=== PATIENT | male | born 1940 | race Caucasian/White ===

== ENCOUNTER 2018-04-12 09:44 | Day surgery (SDC) | payer MEDICARE, MEDICAID ==
[~2018-04-12] VITALS: Ht 188 cm; Wt 78.2 kg
--- NOTE | ~2018-04-12 | OP ---
PATIENT NAME: HAILE MARIN MEDICAL RECORD: [id number] :38 LOCATION:D.OPS ADMISSION DATE: SURGEON: HAILE TERRY MD DATE OF OPERATION: 04/12/2018 PREOPERATIVE DIAGNOSES: 1. Dysphagia. 2. Feeding problems. 3. Acute malnutrition. 4. Lewy body dementia. POSTOPERATIVE DIAGNOSES: 1. Dysphagia. 2. Feeding problems. 3. Acute malnutrition. 4. Lewy body dementia. 5. 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 PROCEDURES: 1. Esophagogastroscopy with antral biopsies. 2. Placement of 28-Armenian percutaneous endoscopic gastrostomy tube. SURGEON: Haile Terry MD MEDICAL BILLING COORDINATOR: None. BLOOD LOSS: Minimal. ANESTHESIA: Local with IV sedation. COMPLICATIONS: None. The risks, possible complications, and alternatives to the procedure were explained. A consent form was signed. The reason for the anesthesia staff being present during the procedure includes the possible need for airway manipulation during the procedure, which was necessary. ENDOSCOPIC COURSE: The patient was conveyed to the endoscopy suite electively on 04/12/2018. IV sedation was induced by the anesthesia staff. A bite-block was inserted. A gastroscope was inserted into the mouth. It was advanced easily into the hypopharynx. The esophagus was easily intubated as was the stomach and the antral biopsies were obtained. I could not intubate the duodenum even though the scope was "hugged out." I cleansed the anterior abdominal wall skin. I indented the anterior abdominal wall skin. I visualized this endoscopically. A small skin ryan was accomplished in the epigastrium. Through the skin ryan, I advanced the Angiocath. I punctured the antrum of the stomach on the first try. A guidewire was advanced. This was grasped with an endoscopic snare and was withdrawn out through the mouth. The wire was attached to a pull-type gastrostomy tube. The gastrostomy tube was then pulled into place. Hub and flange devices were attached. OPERATIVE REPORT [id number] HAILE MARIN I then re-endoscoped the patient's esophagus and stomach. There had been no false passage or perforation. The endoscope was then withdrawn under direct vision. The patient was then conveyed back to his room. They can begin using his feeding tube at the long term tomorrow for medications as well as fluids and tube feedings. TRANSINT:[id number] Voice Confirmation ID: [id number] DOCUMENT ID: [id number] HAILE TERRY MD at 1415 CC: DIXIE GALVEZ [id number] DICTATION DATE: 04/12/187 GLUELINE WORKER: 04/12/18 1248 [facility] [place] 04/12/18 [place] [id number] [place] [id number]
[2018-04-12 10:26] LABS: HEMATOCRIT 41.9 % (42.0-54.0); HEMOGLOBIN 13.9 g/dL (13.5-17.5); MCH 30.5 pg (26.0-34.0); MCHC 33.2 g/dL (31.0-37.0); MCV 92.1 fL (80.0-100.0); RBC 4.55 10x6/uL (4.20-6.10); RDW 14.8 % (11.5-14.5); WBC 6.1 10x3/uL (4.8-10.8)
[2018-04-12 10:42] LABS: ANION GAP 11.9 mmol/L (8-16); CARBON DIOXIDE 29.5 mmol/L (21.0-32.0); CREATININE - SERUM 1.2 mg/dL (0.6-1.3); POTASSIUM - SERUM 4.4 mmol/L (3.5-5.1)
[2018-04-12 11:23] VITALS: BP 127/75; Ht 188 cm; Wt 78.2 kg
== END 2018-04-12 14:25 | disposition home or self-care (01) ==
LOC: D.OPS 09:44
PROVIDERS: Anesthesiology
DX: E46 Unspecified protein-calorie malnutrition (principal); R13.10 Dysphagia, unspecified

== ENCOUNTER 2018-11-15 15:15 | Inpatient (IN) | payer MEDICARE, MEDICAID ==
[~2018-11-15] VITALS: Ht 188 cm; Wt 78.5 kg
[2018-11-15 20:49] VITALS: BP 95/57
[2018-11-16 01:20] VITALS: BP 101/54
[2018-11-16 02:56] VITALS: BP 95/57; BMI 22.2
[2018-11-16 04:47] VITALS: BP 95/50
[2018-11-16] MEDS ORDERED: SINEMET 25-2501 EACH PO (07:25)
[2018-11-16] MEDS ORDERED: COMTAN200 MG PT (07:27)
[2018-11-16] MEDS ORDERED: VITAMIN D2000 UNIT PEG (07:29)
[2018-11-16] MEDS ORDERED: FEXOFENADINE H180 MG PT (07:32)
[2018-11-16] MEDS ORDERED: EFUDEX 5 % CREA40 GM TOPICAL (07:34)
[2018-11-16] MEDS ORDERED: HUMULIN R100 U/ML SC (07:41)
[2018-11-16] MEDS ORDERED: LISINOPRIL20 MG PO (07:42)
[2018-11-16] MEDS ORDERED: REMERON15 MG PO (07:43)
[2018-11-16] MEDS ORDERED: TRAZODONE HCL150 MG PEG (07:45)
[2018-11-16] MEDS ORDERED: NITROSTAT0.4 MG SL (07:51)
[2018-11-16 07:56] LABS: BASOPHILS 0 % (0-2); EOSINOPHILS 0 % (0-7); HEMATOCRIT 33.2 % (42.0-54.0); HEMOGLOBIN 10.2 g/dL (13.5-17.5); IMMATURE GRANULOCYTES 0.7 % (0-5); LYMPHOCYTES 5.8 % (15-50); MCH 28.7 pg (26.0-34.0); MCHC 30.7 g/dL (31.0-37.0); MCV 93.3 fL (80.0-100.0); MEAN PLATELET VOLUME 10.7 fL (7.4-10.4); MONOCYTES 6.3 % (2-11); NEUTROPHILS 87.2 % (40-80); PLATELET COUNT 187 10x3/uL (130-400); RBC 3.56 10x6/uL (4.20-6.10); RDW 15.4 % (11.5-14.5)
[2018-11-16 08:36] VITALS: BP 96/49
[2018-11-16 08:36] LABS: CALC OSMOLALITY 307 mosm/kg (275-300); CALCIUM 9.2 mg/dL (8.5-10.1); CARBON DIOXIDE 29.5 mmol/L (21.0-32.0); CHLORIDE - SERUM 112 mmol/L (98-107); CKMB 1.9 U/L (0.0-3.6); CREATINE KINASE 158 UL (21-232); CREATININE - SERUM 1.1 mg/dL (0.6-1.3); GLUCOSE 141 mg/dL (74-106); MAGNESIUM - SERUM 2.8 mg/dL (1.8-2.4); POTASSIUM - SERUM 4.2 mmol/L (3.5-5.1); SODIUM 145 mmol/L (136-145); TROPONIN-I < 0.017 ng/mL (0.000-0.060); UREA NITROGEN 60 mg/dL (7-18); eGFR NON AFRICAN AMERICAN 69 mL/min (90-120)
[2018-11-16 13:48] LABS: % SATURATION 13 % (15-55); IRON 19 ug/dl (35-150); TOTAL IRON BIND CAPACITY 140 ug/dl (260-445); UNSAT IRON BIND CAPACITY 121 ug/dl (150-375)
[2018-11-16 13:55] VITALS: Ht 188 cm; Wt 78.5 kg
[2018-11-16 13:58] VITALS: BP 103/51
[2018-11-16 14:00] LABS: FERRITIN 397 ng/mL (3-244); LDH 152 U/L (85-227)
[2018-11-16 15:35] LABS: APPEARANCE HAZY (CLEAR); BILIRUBIN NEGATIVE (NEGATIVE); COLOR YELLOW (YELLOW); GLUCOSE NEGATIVE (NEGATIVE); KETONE NEGATIVE (NEGATIVE); NITRITE NEGATIVE (NEGATIVE); PROTEIN TRACE mg/dL (NEGATIVE); UROBILINOGEN NORMAL (NORMAL)
[2018-11-16 15:36] LABS: BACTERIA MANY /hpf (NONE SEEN); MUCUS >1+ /lpf (NONE SEEN); WHITE CELLS - URINE >50 /hpf (0-5)
[2018-11-16 20:58] VITALS: BP 115/73
[2018-11-17 01:35] VITALS: BP 101/68
[2018-11-17 05:07] LABS: BASOPHILS 0.2 % (0-2); EOSINOPHILS 0.3 % (0-7); HEMATOCRIT 33.3 % (42.0-54.0); HEMOGLOBIN 10.1 g/dL (13.5-17.5); IMMATURE GRANULOCYTES 0.7 % (0-5); LYMPHOCYTES 13.7 % (15-50); MCH 28.9 pg (26.0-34.0); MCHC 30.3 g/dL (31.0-37.0); MCV 95.1 fL (80.0-100.0); MEAN PLATELET VOLUME 9.9 fL (7.4-10.4); MONOCYTES 8.8 % (2-11); NEUTROPHILS 76.3 % (40-80); PLATELET COUNT 166 10x3/uL (130-400); RDW 15.4 % (11.5-14.5); WBC 5.8 10x3/uL (4.8-10.8)
[2018-11-17 05:25] VITALS: BP 110/60
[2018-11-17 05:31] LABS: CALC OSMOLALITY 310 mosm/kg (275-300); CALCIUM 9.2 mg/dL (8.5-10.1); CARBON DIOXIDE 28.1 mmol/L (21.0-32.0); GLUCOSE 162 mg/dL (74-106); POTASSIUM - SERUM 3.8 mmol/L (3.5-5.1); SODIUM 149 mmol/L (136-145); UREA NITROGEN 42 mg/dL (7-18); eGFR NON AFRICAN AMERICAN 77 mL/min (90-120)
[2018-11-17 05:32] LABS: CHLORIDE - SERUM 116 mmol/L (98-107)
[2018-11-17 08:42] VITALS: BP 94/47
[2018-11-17 13:07] VITALS: BP 124/70
--- NOTE | 2018-11-17 16:10 | MORECARE ---
CASE MANAGEMENT DISCHARGE SUMMARY PATIENT: CHRIS MARIN UNIT: [id number] ADM DATE: 11/15/18 AGE: 77 : 39 SEX: M ROOM/BED: D.2230 AUTHOR: CICI GRACIA PHYSICIAN: REFERRING PHYSICIAN: MIGUEL BLAKELY MD DATE OF SERVICE: 11/17/18 Discharge Plan Patient Name: CHRIS MARIN [facility] [facility] 1940 Planned Disposition: Nursing Facility [facility] Anticipated Discharge Date: Discharge Date: Expected LOS: Initial Reviewer: [email or web address] Initial Review Date: 11/17/2018 Generated: 11/17/18 5:10 pm Patient Name: CHRIS MARIN Page 30599 at 1610 All edits/amendments must be made on the electronic document DICTATION DATE: 11/17/181608 SPORTS ANNOUNCER: EMILY 11/17/181608 RPT#: [id number] DC DATE: STATUS: ADM IN [facility] [address] [place] [address] END OF REPORT
--- NOTE | 2018-11-17 16:21 | MORECARE ---
CASE MANAGEMENT DISCHARGE SUMMARY PATIENT: CHRIS MARIN UNIT: [id number] ADM DATE: 11/15/18 AGE: 77 : 39 SEX: M ROOM/BED: D.2230 AUTHOR: SAMIA,DOC PHYSICIAN: REFERRING PHYSICIAN: MIGUEL BLAKELY MD DATE OF SERVICE: 11/17/18 Discharge Plan Patient Name: CHRIS MARIN Facility: [facility]:[place] : 1940 Planned Disposition: Nursing Facility C[facility] Cert Anticipated Discharge Date: Discharge Date: Expected LOS: Initial Reviewer: [email or web address] Initial Review Date: 11/17/2018 Generated: 11/17/18 5:21 pm Comments DCP- Discharge Planning Updated by [email or web address]: Peg Montes on 11/17/18 3:[address] Patient Name: CHRIS MARIN Admission Status: ER Accout number: [id number] Admission Date: 11-15-2018 : 1940 Admission Diagnosis: Attending: MIGUEL BLAKELY Current LOS: 2 Anticipated DC Date: Planned Disposition: Nursing Facility [facility] Cert Primary Insurance: [facility] Discharge Planning Comments: Patient is nonverbal. I called Shanthi Viveros, his shipping lead person, to completed discharge planning. He has lived in joint terminal attack controller care at [facility] for about 3 years. He is completely dependent on the nursing staff there. He has had a feeding tube for about a year and gets feeding at the facility. Shanthi states she was his neighbor and is still his shipping lead person. She states she is not his POA. States he does not have any family or a POA. States the plan is for him to return to [facility] on discharge from acute care. CM will continue to follow and assist with discharge planning/needs. Wafer Cutter: Peg Montes DCPIA - Discharge Planning Initial Assessment Updated by [email or web address]: Peg Montes on 11/17/18 4:11 pm * Is the patient Alert and Oriented? No * How many steps to enter\exit or inside your home? 0/0 * PCP Dr. Quijano - [facility] physician * Pharmacy [facility] * Preadmission Environment Collections Clerk [facility] Home * Facility Name [facility] * ADLs Total Dependent * Other Equipment All equipment from [place] * List name and contact numbers for known caregivers / representatives who currently or will assist patient after discharge: Shanthi Swift - [phone] * Verbal permission to speak to the caregivers and representatives has been obtained from the patient. N/A * Community resources currently utilized None * Additional services required to return to the preadmission environment? No * Can the patient safely return to the preadmission environment? Yes * Has this patient been hospitalized within the prior 30 days at any hospital? No Last DP export: 11/17/18 3:10 p Patient Name: CHRIS MARIN Page 42135 at 1621 All edits/amendments must be made on the electronic document DICTATION DATE: 11/17/181619 CORROSION CONTROL ENGINEER: EMILY 11/17/181619 RPT#: [id number] DC DATE: STATUS: ADM IN [facility] [address] [place] [address] END OF REPORT
[2018-11-17 17:23] VITALS: BP 96/46
[2018-11-17 21:43] VITALS: BP 133/74
[2018-11-18 03:05] VITALS: BP 130/70
[2018-11-18 06:13] VITALS: BP 128/60
[2018-11-18 07:18] LABS: BASOPHILS 0.2 % (0-2); EOSINOPHILS 0.2 % (0-7); HEMATOCRIT 33.2 % (42.0-54.0); HEMOGLOBIN 9.9 g/dL (13.5-17.5); IMMATURE GRANULOCYTES 0.5 % (0-5); LYMPHOCYTES 15.8 % (15-50); MCH 28.7 pg (26.0-34.0); MCHC 29.8 g/dL (31.0-37.0); MCV 96.2 fL (80.0-100.0); MEAN PLATELET VOLUME 10.1 fL (7.4-10.4); NEUTROPHILS 76.3 % (40-80); RBC 3.45 10x6/uL (4.20-6.10); RDW 15.3 % (11.5-14.5); WBC 5.7 10x3/uL (4.8-10.8)
[2018-11-18 07:19] LABS: PLATELET COUNT 204 10x3/uL (130-400)
[2018-11-18 07:44] LABS: CALC OSMOLALITY 311 mosm/kg (275-300); CALCIUM 9.7 mg/dL (8.5-10.1); CARBON DIOXIDE 26.7 mmol/L (21.0-32.0); CREATININE - SERUM 0.8 mg/dL (0.6-1.3); GLUCOSE 152 mg/dL (74-106); MAGNESIUM - SERUM 2.3 mg/dL (1.8-2.4); POTASSIUM - SERUM 3.6 mmol/L (3.5-5.1); SODIUM 151 mmol/L (136-145); UREA NITROGEN 38 mg/dL (7-18); eGFR NON AFRICAN AMERICAN > 90 mL/min (90-120)
[2018-11-18 07:50] LABS: CHLORIDE - SERUM 118 mmol/L (98-107)
[2018-11-18 09:05] VITALS: BP 114/70
[2018-11-18 12:57] VITALS: BP 120/76
[2018-11-18 17:40] VITALS: BP 126/95
[2018-11-18 20:00] VITALS: BP 116/75
[2018-11-18 22:06] LABS: FOLATE (FOLIC ACID) - SERUM 19.4 ng/mL (>3.0)
[2018-11-19] VITALS: BP 100/53
[2018-11-19 04:00] VITALS: BP 108/61
[2018-11-19 06:17] LABS: BASOPHILS 0 % (0-2); EOSINOPHILS 0.4 % (0-7); HEMATOCRIT 36.5 % (42.0-54.0); HEMOGLOBIN 11.1 g/dL (13.5-17.5); IMMATURE GRANULOCYTES 0.6 % (0-5); LYMPHOCYTES 15.2 % (15-50); MCH 28.8 pg (26.0-34.0); MCHC 30.4 g/dL (31.0-37.0); MCV 94.6 fL (80.0-100.0); MEAN PLATELET VOLUME 9.8 fL (7.4-10.4); MONOCYTES 6.7 % (2-11); NEUTROPHILS 77.1 % (40-80); PLATELET COUNT 198 10x3/uL (130-400); RBC 3.86 10x6/uL (4.20-6.10); RDW 15.2 % (11.5-14.5)
[2018-11-19 06:19] LABS: WBC 7.2 10x3/uL (4.8-10.8)
[2018-11-19 06:32] LABS: CALC OSMOLALITY 320 mosm/kg (275-300); CALCIUM 9.3 mg/dL (8.5-10.1); CARBON DIOXIDE 29.8 mmol/L (21.0-32.0); CREATININE - SERUM 0.9 mg/dL (0.6-1.3); GLUCOSE 170 mg/dL (74-106); MAGNESIUM - SERUM 2.2 mg/dL (1.8-2.4); PHOSPHOROUS 2.5 mg/dL (2.5-4.9); POTASSIUM - SERUM 3.7 mmol/L (3.5-5.1); SODIUM 156 mmol/L (136-145); UREA NITROGEN 34 mg/dL (7-18); eGFR NON AFRICAN AMERICAN 87 mL/min (90-120)
[2018-11-19 06:38] LABS: CHLORIDE - SERUM 120 mmol/L (98-107)
[2018-11-19 10:19] VITALS: BP 100/62
[2018-11-19 18:08] VITALS: BP 94/51
[2018-11-19 18:19] VITALS: BP 97/43
[2018-11-19 21:07] VITALS: BP 97/58
[2018-11-20 01:08] VITALS: BP 100/65
[2018-11-20 05:29] VITALS: BP 93/48
[2018-11-20 06:33] LABS: BASOPHILS 0.1 % (0-2); EOSINOPHILS 0.7 % (0-7); HEMATOCRIT 35.7 % (42.0-54.0); HEMOGLOBIN 10.9 g/dL (13.5-17.5); IMMATURE GRANULOCYTES 0.8 % (0-5); LYMPHOCYTES 17.6 % (15-50); MCH 28.8 pg (26.0-34.0); MCHC 30.5 g/dL (31.0-37.0); MCV 94.2 fL (80.0-100.0); MEAN PLATELET VOLUME 9.8 fL (7.4-10.4); MONOCYTES 7.2 % (2-11); NEUTROPHILS 73.6 % (40-80); PLATELET COUNT 202 10x3/uL (130-400); RBC 3.79 10x6/uL (4.20-6.10); RDW 15.2 % (11.5-14.5); WBC 8.4 10x3/uL (4.8-10.8)
[2018-11-20 06:54] LABS: CALC OSMOLALITY 320 mosm/kg (275-300); CARBON DIOXIDE 27.6 mmol/L (21.0-32.0); CREATININE - SERUM 0.9 mg/dL (0.6-1.3); GLUCOSE 165 mg/dL (74-106); MAGNESIUM - SERUM 2.2 mg/dL (1.8-2.4); PHOSPHOROUS 2.7 mg/dL (2.5-4.9); POTASSIUM - SERUM 3.6 mmol/L (3.5-5.1); SODIUM 156 mmol/L (136-145); UREA NITROGEN 35 mg/dL (7-18); eGFR NON AFRICAN AMERICAN 87 mL/min (90-120)
[2018-11-20 06:55] LABS: CHLORIDE - SERUM 121 mmol/L (98-107)
[2018-11-20 08:05] VITALS: BP 92/56
--- NOTE | 2018-11-20 09:44 | MORECARE ---
CASE MANAGEMENT DISCHARGE SUMMARY PATIENT: CHRIS MARIN UNIT: [id number] ADM DATE: 11/15/18 AGE: 77 : 39 SEX: M ROOM/BED: D.2230 AUTHOR: SAMIADOC PHYSICIAN: REFERRING PHYSICIAN: MIGUEL BLAKELY MD DATE OF SERVICE: 11/20/18 Discharge Plan Patient Name: CHRIS MARIN Facility: [facility]:[place] : 1940 Planned Disposition: Nursing Facility [facility] Cert Anticipated Discharge Date: Discharge Date: Expected LOS: Initial Reviewer: [email or web address] Initial Review Date: 11/17/2018 Generated: 11/20/18 10:44 am Comments DCP- Discharge Planning Updated by [email or web address]: Arabella Churchill on 11/20/18 8:[address] Patient Name: CHRIS MARIN Admission Status: ER Accout number: [id number] Admission Date: 11-15-2018 : 1940 Admission Diagnosis:ENCEPHALOPATHY, UNSPECIFIED Attending: MIGUEL BLAKELY Current LOS: 5 Anticipated DC Date: Planned Disposition: Nursing Facility [facility] Cert Primary Insurance: [employer] Discharge Planning Comments: PT IS DISCHARGING BACK TO [facility] BED AT [facility] VIS [place] TRANSPORT . Scooper: Arabella Churchill DCP- Discharge Planning Updated by [email or web address]: Peg Montes on 11/17/18 3:[address] Patient Name: CHRIS MARIN Admission Status: ER Accout number: [id number] Admission Date: 11-15-2018 : 1940 Admission Diagnosis: Attending: MIGUEL BLAKELY Current LOS: 2 Anticipated DC Date: Planned Disposition: Nursing Facility [facility] Cert Primary Insurance: [employer] Discharge Planning Comments: Patient is nonverbal. I called Shanthi Jackeline, his personal computer network analyst, to completed discharge planning. He has lived in terminal press operator care at [facility] for about 3 years. He is completely dependent on the nursing staff there. He has had a feeding tube for about a year and gets feeding at the facility. Shanthi states she was his neighbor and is still his personal computer network analyst. She states she is not his POA. States he does not have any family or a POA. States the plan is for him to return to [facility] on discharge from acute care. CM will continue to follow and assist with discharge planning/needs. Scooper: Peg Montes DCPIA - Discharge Planning Initial Assessment Updated by [email or web address]: Peg Montes on 11/17/18 4:11 pm * Is the patient Alert and Oriented? No * How many steps to enter\exit or inside your home? 0/0 * PCP Dr. Quijano - [facility] physician * Pharmacy [facility] * Preadmission Environment Truck Safety Inspector [facility] * Facility Name [facility] * ADLs Total Dependent * Other Equipment All equipment from [place] * List name and contact numbers for known caregivers / representatives who currently or will assist patient after discharge: Shanthi Musawilberbrayan [phone] * Verbal permission to speak to the caregivers and representatives has been obtained from the patient. N/A * Community resources currently utilized None * Additional services required to return to the preadmission environment? No * Can the patient safely return to the preadmission environment? Yes * Has this patient been hospitalized within the prior 30 days at any hospital? No Last DP export: 11/17/18 3:21 p Patient Name: CHRIS MARIN Page 42139 at 0944 All edits/amendments must be made on the electronic document DICTATION DATE: 11/20/18943 COIL FORMER: EMILY 11/20/18943 RPT#: [id number] DC DATE: STATUS: ADM IN [facility] [address] [place] [address] END OF REPORT
--- NOTE | 2018-11-20 11:17 | MORECARE ---
CASE MANAGEMENT DISCHARGE SUMMARY PATIENT: CHRIS MARIN UNIT: [id number] ADM DATE: 11/15/18 AGE: 77 : 39 SEX: M ROOM/BED: D.2230 AUTHOR: SAMIADOC PHYSICIAN: REFERRING PHYSICIAN: MIGUEL BLAKELY MD DATE OF SERVICE: 11/20/18 Discharge Plan Patient Name: CHRIS MARIN Facility: [facility]:[place] : 1940 Planned Disposition: Nursing Facility [facility] Cert Anticipated Discharge Date: 11/20/18 Discharge Date: Expected LOS: 5 Initial Reviewer: [email or web address] Initial Review Date: 11/17/2018 Generated: 11/20/18 12:17 pm Comments DCP- Discharge Planning Updated by [email or web address]: Arabella Churchill on 11/20/18 8:[address] Patient Name: CHRIS MARIN Admission Status: ER Accout number: [id number] Admission Date: 11-15-2018 : 1940 Admission Diagnosis:ENCEPHALOPATHY, UNSPECIFIED Attending: MIGUEL BLAKELY Current LOS: 5 Anticipated DC Date: Planned Disposition: Nursing Facility [facility] Cert Primary Insurance: [employer] Discharge Planning Comments: PT IS DISCHARGING BACK TO [facility] BED AT [facility] VIS [place] TRANSPORT . Journeyman Molder: Arabella Churchill DCP- Discharge Planning Updated by [email or web address]: Peg Montes on 11/17/18 3:[address] Patient Name: CHRIS MAIRN Admission Status: ER Accout number: [id number] Admission Date: 11-15-2018 : 1940 Admission Diagnosis: Attending: MIGUEL BLAKELY Current LOS: 2 Anticipated DC Date: Planned Disposition: Nursing Facility [facility] Cert Primary Insurance: [employer] Discharge Planning Comments: Patient is nonverbal. I called Shanthi Viveros, his floral designer salesperson, to completed discharge planning. He has lived in buttermilk drier operator care at [facility] for about 3 years. He is completely dependent on the nursing staff there. He has had a feeding tube for about a year and gets feeding at the facility. Shanthi states she was his neighbor and is still his floral designer salesperson. She states she is not his POA. States he does not have any family or a POA. States the plan is for him to return to [facility] on discharge from acute care. CM will continue to follow and assist with discharge planning/needs. Journeyman Molder: Peg Montes DCPIA - Discharge Planning Initial Assessment Updated by [email or web address]: Peg Jyoti on 11/17/18 4:11 pm * Is the patient Alert and Oriented? No * How many steps to enter\exit or inside your home? 0/0 * PCP Dr. Quijano - [facility] physician * Pharmacy [facility] * Preadmission Environment [facility] * Facility Name [facility] * ADLs Total Dependent * Other Equipment All equipment from [place] * List name and contact numbers for known caregivers / representatives who currently or will assist patient after discharge: Shanthi Swift [phone] * Verbal permission to speak to the caregivers and representatives has been obtained from the patient. N/A * Community resources currently utilized None * Additional services required to return to the preadmission environment? No * Can the patient safely return to the preadmission environment? Yes * Has this patient been hospitalized within the prior 30 days at any hospital? No Last DP export: 11/20/18 8:44 a Patient Name: CHRIS MARIN Page 82930 at 1117 All edits/amendments must be made on the electronic document DICTATION DATE: 11/20/181115 SENIOR ARCHITECT/DESIGN MANAGER: EMILY 11/20/181115 RPT#: [id number] DC DATE: STATUS: ADM IN [facility] [address] [place] [address] END OF REPORT
--- NOTE | 2018-11-20 11:24 | MORECARE ---
CASE MANAGEMENT DISCHARGE SUMMARY PATIENT: CHRIS MARIN UNIT: [id number] ADM DATE: 11/15/18 AGE: 77 : 39 SEX: M ROOM/BED: D.2230 AUTHOR: SAMIA,DOC PHYSICIAN: REFERRING PHYSICIAN: MIGUEL BLAKELY MD DATE OF SERVICE: 11/20/18 Discharge Plan Patient Name: CHRIS MARIN Facility: [facility]:[place] : 1940 Planned Disposition: Nursing Facility [facility] Cert Anticipated Discharge Date: 11/20/18 Discharge Date: Expected LOS: 5 Initial Reviewer: [email or web address] Initial Review Date: 11/17/2018 Generated: 11/20/18 12:24 pm Comments DCP- Discharge Planning Updated by [email or web address]: Mary Kate Wadsworth on 11/20/18 10:[address] TELEPHONE CALL TO [facility] AT [phone]. SPOKE WITH ROBERT. NURSE TO CALL REPORT TO NIKKO. ADVISED THE PATIENT IS ON 4/L OF NASAL O2, TUBE FEEDINGS AND HAS A PARRY. THE PATIENT WAS NOT ON OXYGEN PRIOR TO ADMISSION. PATIENT WILL BE TRANSPORTED VIA AMBULANCE. CM FAXED DISCHARGE SUMMARY, DISCHARGE MEDS, LABS AND SPEECH EVALS TO [phone]. DCP- Discharge Planning Updated by [id number]: Arabella Churchill on 11/20/18 8:[address] Patient Name: CHRIS MARIN Admission Status: ER Accout number: [id number] Admission Date: 11-15-2018 : 1940 Admission Diagnosis:ENCEPHALOPATHY, UNSPECIFIED Attending: MIGUEL BLAKELY Current LOS: 5 Anticipated DC Date: Planned Disposition: Nursing Facility [facility] Cert [facility] Discharge Planning Comments: PT IS DISCHARGING BACK TO [facility] BED AT [facility] VIS [place] TRANSPORT . Street Flusher Driver: Arabella Churchill DCP- Discharge Planning Updated by [email or web address]: Peg Montes on 11/17/18 3:[address] Patient Name: CHRIS MARIN Admission Status: ER Accout number: [id number] Admission Date: 11-15-2018 : 1940 Admission Diagnosis: Attending: MIGUEL BLAKELY Current LOS: 2 Anticipated DC Date: Planned Disposition: Nursing Facility [facility] Cert Primary Insurance: [facility] Discharge Planning Comments: Patient is nonverbal. I called Shanthi Viveros, his service advocate contact, to completed discharge planning. He has lived in halfway care at [facility] for about 3 years. He is completely dependent on the nursing staff there. He has had a feeding tube for about a year and gets feeding at the facility. Shanthi states she was his neighbor and is still his service advocate contact. She states she is not his POA. States he does not have any family or a POA. States the plan is for him to return to [facility] on discharge from acute care. CM will continue to follow and assist with discharge planning/needs. Street Flusher Driver: Peg Montes HIPIA - Discharge Planning Initial Assessment Updated by [email or web address]: Peg Montes on 11/17/18 4:11 pm * Is the patient Alert and Oriented? No * How many steps to enter\exit or inside your home? 0/0 * PCP Dr. Quijano - [facility] physician * Pharmacy [facility] * Preadmission Environment [facility] * Facility Name [facility] * ADLs Total Dependent * Other Equipment All equipment from [place] * List name and contact numbers for known caregivers / representatives who currently or will assist patient after discharge: Shanthi Swift - [phone] * Verbal permission to speak to the caregivers and representatives has been obtained from the patient. N/A * Community resources currently utilized None * Additional services required to return to the preadmission environment? No * Can the patient safely return to the preadmission environment? Yes * Has this patient been hospitalized within the prior 30 days at any hospital? No Last DP export: 11/20/18 10:17 a Patient Name: CHRIS MARIN Page 15018 at 1124 All edits/amendments must be made on the electronic document DICTATION DATE: 11/20/181123 SENIOR GEOLOGIST: EMILY 11/20/181123 RPT#: [id number] DC DATE: STATUS: ADM IN [facility] [address] [place] [address] END OF REPORT
[2018-11-20 11:53] VITALS: BP 89/55
[2018-11-20 15:06] VITALS: BP 92/53
--- NOTE | 2018-11-20 17:31 | MORECARE ---
CASE MANAGEMENT DISCHARGE SUMMARY PATIENT: CHRIS MARIN UNIT: [id number] ADM DATE: 11/15/18 AGE: 77 : 39 SEX: M ROOM/BED: D.2230 AUTHOR: SAMIA,DOC PHYSICIAN: REFERRING PHYSICIAN: MIGUEL BLAKELY MD DATE OF SERVICE: 11/20/18 Discharge Plan Patient Name: CHRIS MARIN Facility: [facility]:[place] : 1940 Planned Disposition: Nursing Facility [facility] Cert Anticipated Discharge Date: 11/20/18 Discharge Date: 11/20/2018 Expected LOS: 5 Initial Reviewer: [email or web address] Initial Review Date: 11/17/2018 Generated: 11/20/18 6:31 pm Comments DCP- Discharge Planning Updated by [email or web address]: Mary Kate Wadsworth on 11/20/18 10:[address] TELEPHONE CALL TO [facility] AT [phone]. SPOKE WITH ROBERT. NURSE TO CALL REPORT TO NIKKO. ADVISED THE PATIENT IS ON 4/L OF NASAL O2, TUBE FEEDINGS AND HAS A PARRY. THE PATIENT WAS NOT ON OXYGEN PRIOR TO ADMISSION. PATIENT WILL BE TRANSPORTED VIA AMBULANCE. CM FAXED DISCHARGE SUMMARY, DISCHARGE MEDS, LABS AND SPEECH EVALS TO [phone]. DCP- Discharge Planning Updated by [email or web address]: Arabella Churchill on 11/20/18 8:[address] Patient Name: CHRIS MARIN Admission Status: ER Accout number: [id number] Admission Date: 11-15-2018 : 1940 Admission Diagnosis:ENCEPHALOPATHY, UNSPECIFIED Attending: MIGUEL BLAKELY Current LOS: 5 Anticipated DC Date: Planned Disposition: Nursing Facility [facility] Cert [facility] Discharge Planning Comments: PT IS DISCHARGING BACK TO [facility] BED AT [facility] VIS [place] TRANSPORT . Ward Assistant: Arabella Churchill DCP- Discharge Planning Updated by [email or web address]: Peg Montes on 11/17/18 3:[address] Patient Name: CHRIS MARIN Admission Status: ER Accout number: [id number] Admission Date: 11-15-2018 : 1940 Admission Diagnosis: Attending: MIGUEL BLAKELY Current LOS: 2 Anticipated DC Date: Planned Disposition: Nursing Facility [facility] Cert Primary Insurance: [facility] Discharge Planning Comments: Patient is nonverbal. I called Shanthi Viveros, his front desk person, to completed discharge planning. He has lived in termite control servicer care at [facility] for about 3 years. He is completely dependent on the nursing staff there. He has had a feeding tube for about a year and gets feeding at the facility. Shanthi states she was his neighbor and is still his front desk person. She states she is not his POA. States he does not have any family or a POA. States the plan is for him to return to [facility] on discharge from acute care. CM will continue to follow and assist with discharge planning/needs. Ward Assistant: Peg Montes DCPIA - Discharge Planning Initial Assessment Updated by [email or web address]: Peg Montes on 11/17/18 4:11 pm * Is the patient Alert and Oriented? No * How many steps to enter\exit or inside your home? 0/0 * PCP Dr. Quijano - [facility] physician * Pharmacy [facility] * Preadmission Environment Alf Shelter * Facility Name [facility] * ADLs Total Dependent * Other Equipment All equipment from [place] * List name and contact numbers for known caregivers / representatives who currently or will assist patient after discharge: Shanthi Swift - [phone] * Verbal permission to speak to the caregivers and representatives has been obtained from the patient. N/A * Community resources currently utilized None * Additional services required to return to the preadmission environment? No * Can the patient safely return to the preadmission environment? Yes * Has this patient been hospitalized within the prior 30 days at any hospital? No Last DP export: 11/20/18 10:24 a Patient Name: CHRIS MARIN Page 01866 at 1731 All edits/amendments must be made on the electronic document DICTATION DATE: 11/20/181730 LIGHTING DESIGNER: EMILY 11/20/181730 RPT#: [id number] DC DATE:11/20/18 STATUS: DIS IN [facility] [address] [place] [address] END OF REPORT
== END 2018-11-20 16:42 | DRG 70 ==
LOC: D.ER 15:15 → D.EDHOLD 17:11 → D.MS 17:11
PROVIDERS: Family Medicine; ADMIT Internal Medicine Nephrology; ATTEND Internal Medicine Nephrology
DX: G93.40 Encephalopathy, unspecified (principal); R40.2212 Coma scale, best verbal response, none, at arrival to emergency department; T83.511A Infection and inflammatory reaction due to indwelling urethral catheter, initial encounter; N17.9 Acute kidney failure, unspecified; N39.0 Urinary tract infection, site not specified; I10 Essential (primary) hypertension; E11.9 Type 2 diabetes mellitus without complications; D64.9 Anemia, unspecified; F20.9 Schizophrenia, unspecified